=== PATIENT | female | born 2000 | race Caucasian/White ===

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

== ENCOUNTER → 2021-12-15 | Outpatient (CLI) | payer BC | END | disposition home or self-care (01) | LOC: CARD 09:48 | PROVIDERS: ATTEND Physician Assistant | DX: Z51.81 Encounter for therapeutic drug level monitoring (principal) ==